=== PATIENT | male | born 1935 | race Caucasian/White ===

== ENCOUNTER 2017-01-19 16:57 | Emergency (ER) | payer BC, OTHER ==
[~2017-01-19] VITALS: Ht 177.8 cm; Wt 84.1 kg
[~2017-01-19 16:57] MED LIST: NOCURR
[2017-01-19 17:54] VITALS: BP 128/79
== END 2017-01-19 18:18 | disposition home or self-care (01) ==
LOC: EMS 16:58
DX: F60.9 Personality disorder, unspecified (principal)
CPT/HCPCS: 99281